=== PATIENT | male | born 1985 | race Caucasian/White ===

== ENCOUNTER 2020-11-15 17:28 | Emergency (ER) | payer SELFPAY ==
[~2020-11-15] VITALS: Ht 182.9 cm; Wt 77.1 kg
--- NOTE | 2020-11-15 17:34 | ED Integumentary General ---
General Chief Complaint: Skin/Wound Problems Stated Complaint: MOUTH SORES & SORE HANDS/FEET History of Present Illness Date Seen by Provider: Nov 15, 2020 Time Seen by Provider: 17:34 Initial Comments Onset of sores in his mouth 2 days ago, now developing on his hands and his feet today. States it feels like he is having sharp things poked his hands and his feet, worse with movement or walking. Denies similar symptoms previously. Remote contact with a young child last week that was in his house who had gowy-aqvc-otm-mouth, although he never actually was in direct contact with the child. No significant past medical history, on no medications. Allergies and Home Medications Allergies Coded Allergies: Sulfa (Sulfonamide Antibiotics) (Verified Allergy, Unknown, 11/15/20) Home Medications Ibuprofen 800 Mg Tablet, 800 MG PO Q8H PRN for PAIN Prescribed by: MANJULA FRANK on 11/15/20 1750 Patient Home Medication List Home Medication List Reviewed: Yes Review of Systems Review of Systems Constitutional: No fever, No malaise EENTM: see HPI, mouth pain; No ear pain, No eye pain, No tearing, No nose congestion Respiratory: No cough, No short of breath Skin: see HPI, lesions, rash Psychiatric/Neurological: Denies Headache, Denies Numbness Past Mjmfzjt-Lkzjdc-Ygfizr Hx Patient Social History Tobacco Use?: Yes Physical Exam Vital Signs Vital Signs - First Documented 11/15/20 17:40 Temp 36.0 Pulse 88 Resp 16 B/P (MAP) 123/70 (87) Pulse Ox 99 O2 Delivery Room Air Capillary Refill : General Appearance: WD/WN, no apparent distress HEENT: PERRL/EOMI, TMs normal, other (papules of hard and soft palate as well as erythematous macules of lip mucosa) Neck: non-tender, supple Cardiovascular: regular rate, rhythm, no edema Respiratory: chest non-tender, lungs clear Gastrointestinal: non tender, soft Skin: normal color, warm/dry, rash (scattered erythematous tiny papules of hands and feet. Non-vessicular, non- pustular) Progress/Results/Core Measures Results/Orders Vital Signs/I&O 11/15/20 17:40 Temp 36.0 Pulse 88 Resp 16 B/P (MAP) 123/70 (87) Pulse Ox 99 O2 Delivery Room Air Progress Progress Note : Progress Note reassurance given- symptomatic care only. communicable illness explained and advised to self quarantine for several days. Work excuse written Departure Impression Primary Impression: Hand, foot, and mouth disease Disposition: HOME, SELF-CARE Condition: Stable Departure-Patient Inst. Decision time for Depature: 17:49 Referrals: [facility] [facility],LOCAL PHYSICIAN (PCP) Primary Care Physician Patient Instructions: Hand, Foot, and Mouth Disease (DC) Add. Discharge Instructions: follow up with a local [facility] doctor in 1 week for any further questions or concerns. You may rinse your mouth with Chloraseptic spray as needed for mouth pain All discharge instructions reviewed with patient and/or family. Voiced understanding. Scripts Ibuprofen (Ibuprofen) 800 Mg Tablet 800 MG PO Q8H PRN for PAIN, #30 TAB 0 Refills Prov: MANJULA FRANK DO 11/15/20 Work/School Note: Work Release Form Date Seen in the Emergency Department: Nov 15, 2020 Return to Work: Nov 20, 2020 Restrictions: No Restrictions MANJULA FRANK DO Nov 15, 2020 17:34
[2020-11-15 17:40] VITALS: BP 123/70
[2020-11-15] MEDS ORDERED: IBUP-1780 PO (17:50)
--- OUTSIDE RECORDS SUMMARY | 2020-11-16 00:26 | XMS REPORT | Clinical Summary ---
Author Author [facility] Address Unknown Phone Unavailable Care Team Providers Care Senior Materials Scientist Name Role Phone Tory Chapman DO PCP Allergies Comments Active Allergy Reactions Severity Noted Date Codeine Rash 05/12/2019 Sulfa Antibiotics Rash 05/12/2019 Medications End Date Status Medication Sig Dispensed Refills Start Date Active multivitamin Take 1 tablet 0 (THERAPEUTIC) TABS tablet by mouth daily. Active vitamin C (ASCORBIC ACID) Take 500 mg 0 500 MG tablet by mouth daily. Active mirtazapine (REMERON) 15 Take 1 tablet 30 tablet 0 MG tabletIndications: (15 mg total) 0 Major Depressive Disorder by mouth at bedtime. Indications: Major Depressive Disorder Active traZODone (DESYREL) 50 MG Take 1 tablet 30 tablet 0 tabletIndications: (50 mg total) 0 Insomnia by mouth at bedtime as needed for Sleep. Indications: Trouble Sleeping Active QUEtiapine (SEROQUEL) 50 Take 1 tablet 30 tablet 0 MG tabletIndications: (50 mg total) 0 Major depressive by mouth at disorder, recurrent bedtime. severe without psychotic features (HCC) Active folic acid (FOLVITE) 1 MG Take 1 tablet 30 tablet 0 tabletIndications: (1 mg total) 0 Alcohol use disorder, by mouth moderate, dependence daily. (HCC) Active melatonin 5 MG Take 1 tablet 30 tablet 0 TABSIndications: Insomnia (5 mg total) 0 by mouth at bedtime. Indications: Trouble Sleeping Active vitamin B-1 100 MG Take 1 tablet 30 tablet 0 05/18 tabletIndications: (100 mg 0 Alcohol use disorder, total) by moderate, dependence mouth daily. 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 05/13/2019 Anxiety disorder 05/13/2019 PTSD (post-traumatic stress disorder) 05/13/2019 Tobacco use disorder 05/13/2019 Alcohol use disorder, moderate, dependence 0 Cannabis use disorder, mild, abuse 05/13/2019 Stimulant use disorder 05/13/2019 Resolved Problems Problem Noted Date Resolved Date Current mild episode of major depressive disorder, un specified whether 05/12/2019 05/13/2019 recurrent Social History Date Tobacco Use Types Packs/Day Years Used Current Every Day Smoker Cigarettes 2 15 Smokeless Tobacco: Never Used Tobacco Cessation: Ready to Quit: No; Co unseling Given: No Comments Alcohol Use Standard Drinks/Week per day Yes 15 (1 standard drink = 0.6 oz pure alcohol) Control Partners Comments Sexually Active Female Yes Sex Assigned at Date Recorded Male 05/12/2019 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 Last Filed Vital Signs Reading Time Taken Comments Vital Sign 121/74 05/17/2019 8:31 AM MASTER SONAR TECHNICIAN Blood Pressure 94 05/17/2019 8:31 AM MASTER SONAR TECHNICIAN Pulse 36.6 C (97.9 F) 05/17/2019 8:30 AM MASTER SONAR TECHNICIAN Temperature 14 05/17/2019 8:30 AM MASTER SONAR TECHNICIAN Respiratory Rate 99% 05/17/2019 8:30 AM MASTER SONAR TECHNICIAN Oxygen Saturation - - Inhaled Oxygen Concentration 79.4 kg (175 lb) 05/12/2019 8:14 PM MASTER SONAR TECHNICIAN Weight 182.9 cm (6') 05/12/2019 8:14 PM MASTER SONAR TECHNICIAN Height 23.73 05/12/2019 8:14 PM MASTER SONAR TECHNICIAN Body Mass Index Plan of Treatment Health Maintenance Due Date Last Done Comments Varicella Vaccines (1 of 1986 2 - 2-dose childhood series) Pneumo-Vaccine: 65+Yrs (1 11/24/1991 of 2 - PPSV23) Pneumo-Vaccine: Peds (0-5 11/24/1991 Yrs) & At-Risk Patients (6-64 Yrs) (1 of 2 - PPSV23) COVID-19 Vaccine (1) 1997 Hepatitis C Screening 11/24/2003 DTaP,Tdap,and Td Vaccines 2004 (1 - Tdap) MMR Vaccines-Adult 2004 Influenza Vaccine (#1) 2020 HIB Vaccines Aged Out No longer eligible based on patient's age to complete this topic IPV Vaccines Aged Out No longer eligible based on patient's age to complete this topic Meningococcal Vaccine Aged Out No longer eligib le based on patient's age to complete this topic Rotavirus Vaccines Aged Out No longer eligible based on patient's age to complete this topic Results Not on filefrom Last 3 Months Insurance Type Payer Benefit Subscriber ID Effective Phone Address Plan / Dates Group KANCARE [employer]ET[employer] KANCARE 19 [id number] 2019- [address] [employer] Present [id number] [facility] [id number] Advance Directives For more information, please contact: [phone] Patient Suture Polisher Explanation Type Date Recorded Advance Directives and Living Will Power of Machine Cloth Measurer Date Inactivated Comments Code Status Date Activated Full Code 05/17/2019 11:15 AM 05/17/2019 11:15 AM Full Code 05/12/2019 10:25 PM Care Teams Start Date End Date Senior Materials Scientist Relationship Specialty 05/12/19 Tory Chapman DO PCP - General [address] [place] [id number]
--- OUTSIDE RECORDS SUMMARY | 2020-11-16 00:26 | XMS REPORT | Clinical Summary ---
Author Author [facility] Organization [facility] Address Unknown Phone Unavailable Care Team Providers Care Protective Services Case Worker Name Role Phone PCP Unavailable Allergies Not on File Medications Not on file Active Problems Not on file Social History Date Tobacco Use Types Packs/Day Years Used Never Assessed Sex Assigned at Date Recorded Not on file Last Filed Vital Signs Not on file Plan of Treatment Not on file Results Not on filefrom Last 3 Months
== END 2020-11-15 18:03 | disposition home or self-care (01) ==
LOC: ER FS 17:31
DX: B08.4 Enteroviral vesicular stomatitis with exanthem (principal)
CPT/HCPCS: 99282

== ENCOUNTER 2020-11-18 16:48 | Emergency (ER) | payer SELFPAY ==
[~2020-11-18] VITALS: Ht 182.8 cm; Wt 77.1 kg
[~2020-11-18 16:48] MED LIST: IBUP-1780 PO
[2020-11-18 17:00] VITALS: BP 131/71
--- NOTE | 2020-11-18 17:30 | ED General ---
General Chief Complaint: Cough/Cold/Flu Symptoms Stated Complaint: NO SMELL/TASTE; FEVER; COUGH; CHEST CONGESTION Nursing Triage Note: Patient reports he began having a cough, shortness of breath, fever, and loss of taste and smell last night. He reports he took tylenol at 0700 this morning. Source of Information: Patient History of Present Illness Date Seen by Provider: Nov 18, 2020 Time Seen by Provider: 16:52 Initial Comments 34-year-old male presenting with complaints of increased cough and shortness of breath. He has been having subjective fever and chills. He feels like he has lost his sense of taste and smell since last night. He does not smoke cigarettes. He recently had been diagnosed with wzwm-fhcj-fbm-mouth disease earlier this week. He states that that has improved but now he is having these new symptoms. He was concerned that he might have Covid. 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 Associated Systoms: No Chest Pain; Cough, Diaphoresis, Fever/Chills (subjective); No Headaches, No Loss of Appetite, No Malaise, No Nausea/Vomiting; Rash (improving from recent hand-foot and mouth disease); No Seizure; Shortness of Air; No Syncope Allergies and Home Medications Allergies Coded Allergies: Sulfa (Sulfonamide Antibiotics) (Verified Allergy, Unknown, 11/15/20) Home Medications Ibuprofen 800 Mg Tablet, 800 MG PO Q8H PRN for PAIN Prescribed by: MANJULA FRANK on 11/15/20 1750 Patient Home Medication List Home Medication List Reviewed: Yes Review of Systems Review of Systems Constitutional: see HPI EENTM: no symptoms reported Respiratory: see HPI Cardiovascular: no symptoms reported Gastrointestinal: no symptoms reported Genitourinary: no symptoms reported Musculoskeletal: no symptoms reported Skin: see HPI Psychiatric/Neurological: No Symptoms Reported Past Yqoofcf-Atksma-Bpoubo Hx Patient Social History Tobacco Use?: Yes Tobacco type used: Cigarettes Smoking Status: Current Everyday Smoker Physical Exam Vital Signs Vital Signs - First Documented 11/18/20 17:00 Temp 36.2 Pulse 77 Resp 16 B/P (MAP) 131/71 (91) Pulse Ox 99 O2 Delivery Room Air Capillary Refill : Less Than 3 Seconds Height, Weight, BMI Height: '" Weight: lbs. oz. kg; 23.00 BMI Method: General Appearance: No Apparent Distress, WD/WN HEENT: PERRL/EOMI, Pharynx Normal Neck: Full Range of Motion, Normal Inspection, Non Tender, Supple Respiratory: Chest Non Tender, Lungs Clear, Normal Breath Sounds, No Accessory Muscle Use, No Respiratory Distress Cardiovascular: Regular Rate, Rhythm, Normal Peripheral Pulses Gastrointestinal: Normal Bowel Sounds, No Pulsatile Mass, Non Tender, Soft Rectal: Deferred Extremity: Normal Capillary Refill, Normal Inspection, No Pedal Edema Neurologic/Psychiatric: Alert, Oriented x3 Skin: Normal Color, Warm/Dry Progress/Results/Core Measures Suspected Sepsis SIRS Temperature: Pulse: 77 Respiratory Rate: 16 Blood Pressure 131 /71 Mean: 91 Results/Orders Lab Results Laboratory Tests Test 11/18/20 17:35 Range/Units My Orders Orders - LISA TSAI MD Covid 19 Inhouse Test (11/18/20 17:22) Influenza A And B By Pcr (11/18/20 17:22) Vital Signs/I&O 11/18/20 11/18/20 17:00 17:00 Temp 36.2 Pulse 77 Resp 16 B/P (MAP) 131/71 (91) Pulse Ox 99 O2 Delivery Room Air Room Air Capillary Refill : Less Than 3 Seconds Blood Pressure Mean: 91 Progress Note : Progress Note Patient does report getting dizzy with changing positions. However he refused an IV for IV fluids. He stated that he wanted a Covid test to determine if he had Covid significant return to work or not. I advised the patient that I did not have a rapid test here at [facility] but I would have results within 24 hours. He was doing well and had normal vital signs otherwise. Patient stated that he would like to proceed with the Covid swab but refused IV, chest x-ray, labs. I did advise him that he could have a rapid test done through urgent care or by going to [facility] and buying a test but patient stated he wanted to have one done here.. Counseled to continue with self quarantine and isolation until negative test results or 10 days after a positive test result. Departure Impression Primary Impression: Viral upper respiratory tract infection with cough Additional Impressions: Loss of taste Loss of smell Tobacco abuse Disposition: 01 HOME, SELF-CARE Condition: Stable Departure-Patient Inst. Decision time for Depature: 17:25 Referrals: NO,LOCAL PHYSICIAN (PCP) Primary Care Physician [facility] [place] Patient Instructions: COVID-19 Overview, Cough, Adult ED, Quitting Smoking ED, Upper Respiratory Infection ED Add. Discharge Instructions: Stay well hydrated and drink plenty of water and electrolyte drinks. Use Mucinex to help with cough and congestion. Stopping smoking will help with your cough and shortness of breath Stay quarantined until you have negative results from your Covid test or 10 days after a positive test result. Check back with clinic for continued concerns or not improving All discharge instructions reviewed with patient and/or family. Voiced understanding. Work/School Note: Work Release Form Date Seen in the Emergency Department: Nov 18, 2020 Return to Work: Nov 21, 2020 Other Restrictions Listed Below: Off work until negative Covid test or 10 days after positive test LISA TSAI MD Nov 18, 2020 17:30
== END 2020-11-18 17:50 | disposition home or self-care (01) ==
LOC: EDUNIT# 16:48 → ER FS 16:49
DX: U07.1 COVID-19 (principal); F17.210 Nicotine dependence, cigarettes, uncomplicated
CPT/HCPCS: 87636